=== PATIENT | male | born 1985 | race Caucasian/White ===

== ENCOUNTER 2018-05-02 20:03 | Emergency (ER) | payer SELFPAY ==
[~2018-05-02] VITALS: Ht 154.9 cm; Wt 62.1 kg
[2018-05-02 20:06] VITALS: BP 117/41
--- NOTE | 2018-05-02 20:10 | NUR ---
PT TAKEN TO BED 10
--- NOTE | 2018-05-02 20:15 | NUR ---
PT PRESENTED ER WITH C/O HIVES X 3 HOURS AGO. PT STATED HE ATE SHRIMP AND THEN TOOK EXCEDRIN MIGRAINE. PT STATED HE CANT FEEL HIS FINGERS. PT HAS HIVES THROUGHOUT BODY, BACK, LEGS, FEET AND FEELS SOME SWELLING IN THE THROAT. PT O2 SATURATION IS 99 PERCENT RA AT THIS TIME. PT STATES HE IS NOT IN PAIN 0/10 BUT HAS ITCHING. NKA AND NO MEDICAL HX. PT IS A/O X 4; VSS; PATIENT POSITIONED FOR COMFORT; HOB ELEVATED; BEDRAILS UP X2; BED DOWN. ER MD MADE AWARE OF PT STATUS.
[2018-05-02] MEDS ORDERED: NACL 0.9% 1,000 ML IV ONE (21:05)
[2018-05-02] MEDS ORDERED: methylPREDNISolone SS 125 MG/2 ML VIAL IVP ONE (21:05)
[2018-05-02 22:45] VITALS: BP 117/41
--- NOTE | 2018-05-02 22:45 | NUR ---
Patient discharged by Dr. Biggs with v/s stable. Written and verbal after care instructions given and explained. Patient alert, oriented and verbalized understanding of instructions. Ambulatory with steady gait. All questions addressed prior to discharge. ID band removed. Patient advised to follow up with PMD. Rx of PREDNISONE was given. Patient educated on indication of medication including possible reaction and side effects. Opportunity to ask questions provided and answered.
== END 2018-05-02 22:45 | disposition home or self-care (01) ==
LOC: MED 20:03
DX: R51 Headache (principal); T39.1X5A Adverse effect of 4-Aminophenol derivatives, initial encounter; Y92.89 Other specified places as the place of occurrence of the external cause
CPT/HCPCS: 96372; 96374; 99284; J0171; J2930; J7030